=== PATIENT | female | born 1950 | race Caucasian/White ===

== ENCOUNTER 2020-12-06 15:37 | Inpatient (IN) | payer MEDICARE ==
[~2020-12-06] VITALS: Ht 170.2 cm; Wt 146.3 kg
[2020-12-06 18:28] LABS: BASOPHILS % (AUTO) 0.5 % (0-1); EOSINOPHILS % (AUTO) 0 % (0-6); HEMATOCRIT 45.1 % (35.0-45.0); HEMOGLOBIN 15.1 g/dl (12.0-16.0); LYMPHOCYTES # (AUTO) 0.9 X10'3 (1.1-4.8); LYMPHOCYTES % (AUTO) 15.1 % (21-51); MEAN CORPUSCULAR HEMOGLOBIN 26.8 PG (27.0-31.0); MEAN CORPUSCULAR HGB CONC 33.6 g/dL (33.0-36.5); MEAN CORPUSCULAR VOLUME 79.9 FL (78-98); MEAN PLATELET VOLUME 7.6 FL (7.4-10.4); MONOCYTES # (AUTO) 0.8 X10'3 (0-0.9); MONOCYTES % (AUTO) 14.5 % (2-12); NEUTROPHILS # (AUTO) 4.1 X10'3 (1.8-7.7); NEUTROPHILS % (AUTO) 69.9 % (42-75); PLATELET COUNT 240 X10'3 (140-440); RED BLOOD COUNT 5.64 X10'6 (4.20-5.60); RED CELL DISTRIBUTION WIDTH 14.8 % (11.5-14.5); WHITE BLOOD COUNT 5.8 X10'3 (4.5-11.0)
[2020-12-06 18:39] LABS: D-DIMER 1.37 MG/L FEU (0-0.50)
[2020-12-06] MEDS ORDERED: dexamethasone 4mg/ml inj IV ONE (19:00)
[2020-12-06 19:21] LABS: ALANINE AMINOTRANSFERASE 38 U/L (12-78); ALBUMIN/GLOBULIN RATIO 0.6 (1.1-1.5); BILIRUBIN,TOTAL 0.6 MG/DL (0.1-1.0); C-REACTIVE PROTEIN 4.32 MG/DL (0.0-0.5); CALCIUM 8.9 MG/DL (8.5-10.1); CHLORIDE 92 MMOL/L (99-107); GLUCOSE 109 MG/DL (70-104); SODIUM 129 MMOL/L (135-145); TOTAL PROTEIN 7.7 G/DL (6.4-8.2); eGFR 62 ML/MIN
[2020-12-06 19:23] LABS: LACTATE DEHYDROGENASE 311 U/L (81-234)
[2020-12-06 19:41] LABS: ANION GAP 12 (8-16); ASPARTATE AMINO TRANSFERASE 43 U/L (10-37); BLOOD UREA NITROGEN 20 MG/DL (7-18); BUN/CREATININE RATIO 22.2 (6.6-38.0); TOTAL CARBON DIOXIDE 24.8 MMOL/L (24-32)
[2020-12-06 19:52] LABS: ALKALINE PHOSPHATASE 76 IU/L (46-116)
[2020-12-06] MEDS ORDERED: REMDESIVIR INJ 200 MG in normal saline 100ml IV soln 60 ML IV ONE (19:55)
[2020-12-06] MEDS ORDERED: diphenhydrAMINE 25mg capsule PO PRN (20:55)
[2020-12-06] MEDS ORDERED: potassium Cl 20 mEq SR tablet PO PRN (20:55)
[2020-12-06] MEDS ORDERED: ondansetron/PF 4mg/2ml inj IV PRN (20:55)
[2020-12-06] MEDS ORDERED: HYDROcodone/acetaminophen 5mg/325mg tablet PO PRN (20:55)
[2020-12-06] MEDS ORDERED: potassium Cl 40MEQ/1/2NS 520ml 520 ML IV PRN ×2 (20:55)
[2020-12-06] MEDS ORDERED: bisacodyl 10mg suppository rectal RC PRN (20:55)
[2020-12-06] MEDS ORDERED: HYDROmorphone inj. 0.5 MG/0.5 ML DISP.SYRIN IV PRN (20:55)
[2020-12-06] MEDS ORDERED: morphine 2 MG/ML inj. syringe IV PRN ×2 (20:55)
[2020-12-06] MEDS ORDERED: magnesium hydroxide 30ml (MOM) UD suspension PO PRN (20:55)
[2020-12-06] MEDS ORDERED: ondansetron 4mg rapidly disintigrating tab PO PRN (20:55)
[2020-12-06] MEDS ORDERED: acetaminophen 325mg tablet PO PRN ×2 (20:55)
[2020-12-06] MEDS ORDERED: acetaminophen 650mg rectal suppository RC PRN (20:55)
[2020-12-06] MEDS ORDERED: diphenhydrAMINE 50 mg/ml inj IV PRN (20:55)
[2020-12-06] MEDS ORDERED: mag hydrox/Alum hydrox/simeth 30ml oral suspension PO PRN (20:55)
[2020-12-06] MEDS ORDERED: temazepam 15mg capsule PO PRN (21:00)
[2020-12-06] MEDS ORDERED: dextrose ORAL solution 15 GM/59 ML bottle PO PRN ×2 (21:05)
[2020-12-06] MEDS ORDERED: dextrose 50%-water 50ml dispensing syringe IV PRN ×2 (21:05)
[2020-12-06] MEDS ORDERED: MESSAGE TO PHARMACY PO ONE (21:05)
[2020-12-06] MEDS ORDERED: glucagon, human recombinant 1mg kit SUBCUT PRN (21:05)
--- NOTE | 2020-12-06 21:23 | NUR ---
VISHNU Rangel would like to be kept updated [phone]
[2020-12-06 21:42] LABS: PARTIAL THROMBOPLASTIN TIME 28 SECONDS (22-32)
[2020-12-06 21:46] LABS: CREATINE KINASE 261 U/L (26-192); LIPASE 150 U/L (73-393); MAGNESIUM 2.2 MG/DL (1.5-2.4); PHOSPHORUS 3.3 MG/DL (2.3-4.5)
[2020-12-06 21:48] LABS: HEMOGLOBIN A1C 7.4 % (4.5-6.2)
[2020-12-06] MEDS ORDERED: ALBU18HF2 PO (22:08)
[2020-12-06] MEDS ORDERED: LOSA50TA64 PO (22:08)
[2020-12-06] MEDS ORDERED: OXYB15TA19 PO (22:08)
[2020-12-06] MEDS ORDERED: METF-436 PO (22:08)
[2020-12-06] MEDS ORDERED: ATEN1TAB5 PO (22:08)
[2020-12-06] MEDS: normal saline 1000ml 1,000 ML IV SCH (22:13)
[2020-12-06 23:42] LABS: CLARITY,URINE CLOUDY (Clear); COLOR,URINE YELLOW (Yellow); PH,URINE 6.5 (4.8-8.0); UA COLLECTION TYPE CLN CATCH MIDSTREAM
[2020-12-06 23:43] LABS: KETONES,URINE NEGATIVE (Neg); PROTEIN,URINE 100 mg/dl (Neg)
[2020-12-06 23:44] LABS: GLUCOSE, URINE NEGATIVE (Neg); NITRITES, URINE POSITIVE (Neg); OCCULT BLOOD,URINE MODERATE (Neg); UROBILINOGEN,URINE 0.2 E.U/dL (0.2-1.0)
[2020-12-06 23:45] LABS: LEUKOCYTE ESTERASE ,URINE LARGE (Neg)
[2020-12-06] MEDS ORDERED: ALBUTEROL INHALER 1 PUFF/90 MCG INHALER IH PRN (23:45)
[2020-12-06 23:54] LABS: BACTERIA,URINE 4+ /HPF (Neg); MUCUS STRANDS NONE SEEN /LPF (Neg); RBC,URINE 0-2 /HPF (0-2); SQUAMOUS EPITHELIAL CELL,UR MODERATE /LPF (FEW); TRIPLE PHOSPHATE CRYST 1+ /HPF (NEGATIVE)
--- NOTE | 2020-12-07 06:47 | NUR ---
REPORT ATTEMPTED, PT BED PENDING UNTIL CURRENT PT TRANSFERED OUT AND ROOM CLEANED
[2020-12-07] MEDS: normal saline 1000ml 1,000 ML IV SCH ×2 (07:25→20:44)
[2020-12-07] MEDS ORDERED: pantoprazole 40mg Tablet.DR PO SCH (07:30)
--- NOTE | 2020-12-07 07:51 | NUR ---
CALLED ER FOR REPORT, NO REPLY
[2020-12-07] MEDS: K and/or MAG REPLACEMENT MC SCH ×2 (08:00→20:33)
--- NOTE | 2020-12-07 09:00 | NUR ---
Patient in room COVID 05. I have received report from keo, nonfarm animal caretaker and had the opportunity to ask questions and assume patient care.
[2020-12-07 09:05] LABS: BASOPHILS % (AUTO) 0.4 % (0-1); EOSINOPHILS % (AUTO) 0 % (0-6); HEMATOCRIT 45.5 % (35.0-45.0); LYMPHOCYTES # (AUTO) 0.6 X10'3 (1.1-4.8); LYMPHOCYTES % (AUTO) 17.6 % (21-51); MEAN CORPUSCULAR HEMOGLOBIN 26.7 PG (27.0-31.0); MEAN CORPUSCULAR HGB CONC 32.9 g/dL (33.0-36.5); MEAN PLATELET VOLUME 7.9 FL (7.4-10.4); MONOCYTES # (AUTO) 0.6 X10'3 (0-0.9); MONOCYTES % (AUTO) 16.3 % (2-12); NEUTROPHILS # (AUTO) 2.3 X10'3 (1.8-7.7); NEUTROPHILS % (AUTO) 65.7 % (42-75); PLATELET COUNT 236 X10'3 (140-440); RED BLOOD COUNT 5.61 X10'6 (4.20-5.60); RED CELL DISTRIBUTION WIDTH 14.7 % (11.5-14.5); WHITE BLOOD COUNT 3.6 X10'3 (4.5-11.0)
[2020-12-07 09:16] LABS: ALANINE AMINOTRANSFERASE 29 U/L (12-78); ALBUMIN 2.6 G/DL (3.4-5.0); ALBUMIN/GLOBULIN RATIO 0.6 (1.1-1.5); ALKALINE PHOSPHATASE 69 IU/L (46-116); ANION GAP 12 (8-16); ASPARTATE AMINO TRANSFERASE 38 U/L (10-37); BILIRUBIN,TOTAL 0.5 MG/DL (0.1-1.0); BLOOD UREA NITROGEN 17 MG/DL (7-18); BUN/CREATININE RATIO 25.8 (6.6-38.0); CALCIUM 8.7 MG/DL (8.5-10.1); CHLORIDE 98 MMOL/L (99-107); CHOL/HDL RATIO 3.5 (0.00-4.99); CHOLESTEROL 137 MG/DL (0-200); CREATININE 0.66 MG/DL (0.40-0.90); GLUCOSE 141 MG/DL (70-104); HDL CHOLESTEROL 39 MG/DL (35-60); LDL CHOLESTEROL 71 MG/DL (50-100); POTASSIUM 3.4 MMOL/L (3.5-5.1); SODIUM 133 MMOL/L (135-145); TOTAL CARBON DIOXIDE 23.5 MMOL/L (24-32); TOTAL PROTEIN 7.2 G/DL (6.4-8.2); TRIGLYCERIDES 102 MG/DL (20-135); eGFR 89 ML/MIN
[2020-12-07] MEDS: REMDESIVIR INJ 100 MG in normal saline 100ml IV soln 80 ML IV SCH (09:30)
[2020-12-07] MEDS: docusate sod 100mg capsule PO SCH ×2 (09:32→20:47)
[2020-12-07] MEDS: chlorthalidone 25mg tablet PO SCH (09:32)
[2020-12-07] MEDS: oxybutynin 5mg tablet PO SCH ×3 (09:32→20:47)
[2020-12-07] MEDS: pantoprazole 40mg Tablet.DR PO SCH (09:33)
[2020-12-07] MEDS: losartan 50mg tablet PO SCH (09:35)
[2020-12-07] MEDS: atenolol 50mg tablet PO SCH (09:36)
[2020-12-07 10:30] VITALS: BP 142/76
--- NOTE | 2020-12-07 10:30 | NUR ---
received pt into room 5A, oriented to surroundings,pt on 6l/n/csao2=98, pt denies pt denies pain, sob VSS
[2020-12-07] MEDS: CefTRIAXone/D5W-Rocephin 1gm 50 ML IV SCH (11:05)
[2020-12-07] MEDS: dexamethasone inj 6 MG in normal saline 50ml IV soln 50 ML IV SCH (11:05)
[2020-12-07] MEDS: azithromycin/NS 500mg/250ml 250 ML IV SCH (11:05)
[2020-12-07] MEDS: enoxaparin 80mg/0.8ml syringe SUBCUT SCH ×2 (11:06→20:47)
[2020-12-07 14:00] VITALS: BP 141/72
--- NOTE | 2020-12-07 18:37 | NUR ---
Problems reprioritized. Patient report given, questions answered & plan of care reviewed with [place] galicia.
[2020-12-07 20:00] VITALS: BP 132/3
[2020-12-07] MEDS: insulin glargine (Lantus) pen - multi-dose SQ SCH (21:00)
[2020-12-08] VITALS: BP 139/75
[2020-12-08] MEDS: normal saline 1000ml 1,000 ML IV SCH ×3 (02:58→23:32)
[2020-12-08 06:00] VITALS: BP 133/71
--- NOTE | 2020-12-08 06:38 | NUR ---
Problems reprioritized. Patient report given, questions answered & plan of care reviewed with CH[facility]. Addendum: 12/08/20 at 0639 by Benjie Hayward RN Amended: Links added.
[2020-12-08] MEDS: dexamethasone inj 6 MG in normal saline 50ml IV soln 50 ML IV SCH (07:57)
[2020-12-08] MEDS: potassium chloride 8mEq ER tablet PO SCH (08:00)
[2020-12-08] MEDS: pantoprazole 40mg Tablet.DR PO SCH (08:01)
[2020-12-08] MEDS: oxybutynin 5mg tablet PO SCH ×3 (08:01→21:43)
[2020-12-08] MEDS: losartan 50mg tablet PO SCH (08:02)
[2020-12-08] MEDS: chlorthalidone 25mg tablet PO SCH (08:03)
[2020-12-08] MEDS: docusate sod 100mg capsule PO SCH ×2 (08:03→21:43)
[2020-12-08] MEDS: atenolol 50mg tablet PO SCH (08:03)
[2020-12-08 08:05] LABS: BASOPHILS % (AUTO) 0.1 % (0-1); EOSINOPHILS % (AUTO) 0.2 % (0-6); HEMATOCRIT 40.5 % (35.0-45.0); HEMOGLOBIN 13.6 g/dl (12.0-16.0); LYMPHOCYTES % (AUTO) 18.6 % (21-51); MEAN CORPUSCULAR HEMOGLOBIN 26.6 PG (27.0-31.0); MEAN CORPUSCULAR HGB CONC 33.7 g/dL (33.0-36.5); MEAN CORPUSCULAR VOLUME 78.8 FL (78-98); MEAN PLATELET VOLUME 7.4 FL (7.4-10.4); MONOCYTES # (AUTO) 0.8 X10'3 (0-0.9); NEUTROPHILS # (AUTO) 3.6 X10'3 (1.8-7.7); NEUTROPHILS % (AUTO) 67.1 % (42-75); PLATELET COUNT 295 X10'3 (140-440); RED BLOOD COUNT 5.13 X10'6 (4.20-5.60); RED CELL DISTRIBUTION WIDTH 14.8 % (11.5-14.5); WHITE BLOOD COUNT 5.4 X10'3 (4.5-11.0)
[2020-12-08] MEDS: furosemide 20 MG/2 ML vial IV SCH (08:07)
[2020-12-08] MEDS: enoxaparin 80mg/0.8ml syringe SUBCUT SCH ×2 (08:09→21:42)
[2020-12-08 08:18] LABS: ALANINE AMINOTRANSFERASE 26 U/L (12-78); ALBUMIN 2.5 G/DL (3.4-5.0); ALBUMIN/GLOBULIN RATIO 0.6 (1.1-1.5); ALKALINE PHOSPHATASE 57 IU/L (46-116); ANION GAP 9 (8-16); ASPARTATE AMINO TRANSFERASE 25 U/L (10-37); BILIRUBIN,TOTAL 0.4 MG/DL (0.1-1.0); BLOOD UREA NITROGEN 17 MG/DL (7-18); BUN/CREATININE RATIO 25.8 (6.6-38.0); CALCIUM 8.3 MG/DL (8.5-10.1); CHLORIDE 101 MMOL/L (99-107); CREATININE 0.66 MG/DL (0.40-0.90); GLUCOSE 116 MG/DL (70-104); SODIUM 137 MMOL/L (135-145); TOTAL PROTEIN 6.5 G/DL (6.4-8.2); eGFR 89 ML/MIN
[2020-12-08] MEDS: potassium Cl 20 mEq SR tablet PO PRN ×3 (08:47→17:41)
[2020-12-08] MEDS: REMDESIVIR INJ 100 MG in normal saline 100ml IV soln 80 ML IV SCH (08:47)
[2020-12-08] MEDS: K and/or MAG REPLACEMENT MC SCH ×2 (08:53→20:00)
--- NOTE | 2020-12-08 09:34 | NUR ---
DM consult: Noted pt with T2DM, current A1c is 7.4%. Pt presented with c/o generalized weakness and flu-like symptoms and significant SOB and admit with acute respiratory failure secondary COVID-19 pneumonia. DM education deferred until pt more stable. Will continue to follow. Addendum: 12/08/20 at [address] Amended: Links added.
[2020-12-08] MEDS: CefTRIAXone/D5W-Rocephin 1gm 50 ML IV SCH (09:58)
[2020-12-08] MEDS: azithromycin/NS 500mg/250ml 250 ML IV SCH (10:33)
[2020-12-08 12:00] VITALS: BP 129/72
[2020-12-08 17:53] VITALS: BP 136/86
--- NOTE | 2020-12-08 19:02 | NUR ---
Patient in room COVID 05. I have received report from BILL Le and had the opportunity to ask questions and assume patient care.
--- NOTE | 2020-12-08 19:04 | NUR ---
REPORT GIVEN TO JENISE KHAN, PT STABLE AND APPROPRIATE AT THIS TIME.
[2020-12-08] MEDS: insulin glargine (Lantus) pen - multi-dose SQ SCH (21:00)
[2020-12-08 22:00] VITALS: BP 148/79
--- NOTE | 2020-12-08 23:36 | NUR ---
Patient satting 86-90 with 6L. Patient is now on a Salter at 10L satting 92-93.
[2020-12-09 02:00] VITALS: BP 147/79
--- NOTE | 2020-12-09 03:24 | NUR ---
Patient is now on 15 L with the Salter. She was satting in the 80's at 10L now satting at 95% at 15L
[2020-12-09 06:00] VITALS: BP 159/92
--- NOTE | 2020-12-09 06:27 | NUR ---
Problems reprioritized. Patient report given, questions answered & plan of care reviewed with BILL Rushing.
--- NOTE | 2020-12-09 06:42 | NUR ---
Patient in room COVID 05. I have received report from BILL Rhodes and had the opportunity to ask questions and assume patient care.
[2020-12-09] MEDS: K and/or MAG REPLACEMENT MC SCH ×2 (08:00→20:00)
[2020-12-09] MEDS: dexamethasone inj 6 MG in normal saline 50ml IV soln 50 ML IV SCH (09:22)
[2020-12-09] MEDS: oxybutynin 5mg tablet PO SCH ×3 (09:22→20:54)
[2020-12-09] MEDS: normal saline 1000ml 1,000 ML IV SCH ×2 (09:22→20:54)
[2020-12-09] MEDS: losartan 50mg tablet PO SCH (09:23)
[2020-12-09] MEDS: docusate sod 100mg capsule PO SCH ×2 (09:23→20:00)
[2020-12-09] MEDS: chlorthalidone 25mg tablet PO SCH (09:23)
[2020-12-09] MEDS: furosemide 20 MG/2 ML vial IV SCH (09:23)
[2020-12-09] MEDS: pantoprazole 40mg Tablet.DR PO SCH (09:23)
[2020-12-09] MEDS: atenolol 50mg tablet PO SCH (09:24)
[2020-12-09] MEDS: potassium chloride 8mEq ER tablet PO SCH (09:24)
[2020-12-09] MEDS: enoxaparin 80mg/0.8ml syringe SUBCUT SCH ×2 (09:24→20:54)
[2020-12-09 09:53] LABS: BASOPHILS % (AUTO) 0.2 % (0-1); EOSINOPHILS % (AUTO) 0.5 % (0-6); HEMATOCRIT 41.4 % (35.0-45.0); HEMOGLOBIN 13.8 g/dl (12.0-16.0); LYMPHOCYTES # (AUTO) 0.9 X10'3 (1.1-4.8); LYMPHOCYTES % (AUTO) 11.5 % (21-51); MEAN CORPUSCULAR HEMOGLOBIN 26.8 PG (27.0-31.0); MEAN CORPUSCULAR HGB CONC 33.3 g/dL (33.0-36.5); MEAN CORPUSCULAR VOLUME 80.4 FL (78-98); MEAN PLATELET VOLUME 7.8 FL (7.4-10.4); MONOCYTES % (AUTO) 12.1 % (2-12); NEUTROPHILS # (AUTO) 5.9 X10'3 (1.8-7.7); NEUTROPHILS % (AUTO) 75.7 % (42-75); PLATELET COUNT 328 X10'3 (140-440); RED BLOOD COUNT 5.15 X10'6 (4.20-5.60); RED CELL DISTRIBUTION WIDTH 14.7 % (11.5-14.5); WHITE BLOOD COUNT 7.8 X10'3 (4.5-11.0)
[2020-12-09 09:55] LABS: ALANINE AMINOTRANSFERASE 28 U/L (12-78); ALBUMIN 2.6 G/DL (3.4-5.0); ALBUMIN/GLOBULIN RATIO 0.6 (1.1-1.5); ALKALINE PHOSPHATASE 63 IU/L (46-116); ANION GAP 11 (8-16); ASPARTATE AMINO TRANSFERASE 23 U/L (10-37); BILIRUBIN,TOTAL 0.5 MG/DL (0.1-1.0); BLOOD UREA NITROGEN 17 MG/DL (7-18); CALCIUM 8.6 MG/DL (8.5-10.1); CHLORIDE 102 MMOL/L (99-107); CREATININE 0.81 MG/DL (0.40-0.90); GLUCOSE 152 MG/DL (70-104); POTASSIUM 3.8 MMOL/L (3.5-5.1); SODIUM 137 MMOL/L (135-145); TOTAL CARBON DIOXIDE 23.7 MMOL/L (24-32); TOTAL PROTEIN 6.8 G/DL (6.4-8.2); eGFR 70 ML/MIN
[2020-12-09 10:00] VITALS: BP 178/93
[2020-12-09] MEDS: REMDESIVIR INJ 100 MG in normal saline 100ml IV soln 80 ML IV SCH (10:03)
[2020-12-09] MEDS: CefTRIAXone/D5W-Rocephin 1gm 50 ML IV SCH (11:18)
[2020-12-09] MEDS: azithromycin/NS 500mg/250ml 250 ML IV SCH (11:56)
[2020-12-09 14:00] VITALS: BP 150/56
[2020-12-09] MEDS ORDERED: LACT1CAP26 PO (15:24)
[2020-12-09] MEDS ORDERED: AZIT500T9 PO (15:24)
[2020-12-09] MEDS ORDERED: METH4TAB81 PO (15:24)
[2020-12-09] MEDS ORDERED: PANT40TA54 PO (15:24)
--- NOTE | 2020-12-09 17:17 | NUR ---
Pt transported to room 4023B, via wheelchair, with all belongings.
--- NOTE | 2020-12-09 18:39 | NUR ---
Problems reprioritized. Patient report given, questions answered & plan of care reviewed with BILL Wiggins.
--- NOTE | 2020-12-09 18:39 | NUR ---
Patient in room ORTHO 4023. I have received report from Kristan KHAN and had the opportunity to ask questions and assume patient care.
[2020-12-09 20:00] VITALS: BP 152/60
[2020-12-09] MEDS: lactobacillus rhamnosus 10,000 MMU CELLS/CAPSULE PO SCH (20:54)
[2020-12-09] MEDS: insulin glargine (Lantus) pen - multi-dose SQ SCH (21:00)
[2020-12-09 22:00] VITALS: BP 146/78
[2020-12-10] MEDS: dexamethasone inj 6 MG in normal saline 50ml IV soln 50 ML IV SCH ×3 (00:02→19:03)
--- NOTE | 2020-12-10 00:23 | NUR ---
Problems reprioritized. Patient report given, questions answered & plan of care reviewed with Thuy KHAN.
--- NOTE | 2020-12-10 00:30 | NUR ---
Assumed care of pt at this time report from Rosalie KHAN.
[2020-12-10 02:00] VITALS: BP 138/87
[2020-12-10] MEDS: normal saline 1000ml 1,000 ML IV SCH ×2 (04:55→14:55)
--- NOTE | 2020-12-10 06:20 | NUR ---
Report to Yodit Godwin.
[2020-12-10 06:32] VITALS: BP 160/89
--- NOTE | 2020-12-10 06:33 | NUR ---
Patient in room ORTHO 4023. I have received report from Thuy KHAN and had the opportunity to ask questions and assume patient care.
[2020-12-10] MEDS: CefTRIAXone/D5W-Rocephin 1gm 50 ML IV SCH (07:35)
[2020-12-10] MEDS: REMDESIVIR INJ 100 MG in normal saline 100ml IV soln 80 ML IV SCH (07:35)
[2020-12-10] MEDS: pantoprazole 40mg Tablet.DR PO SCH (07:36)
[2020-12-10] MEDS: furosemide 20 MG/2 ML vial IV SCH (07:36)
[2020-12-10] MEDS: oxybutynin 5mg tablet PO SCH ×3 (07:36→22:18)
[2020-12-10] MEDS: chlorthalidone 25mg tablet PO SCH (07:36)
[2020-12-10] MEDS: potassium chloride 8mEq ER tablet PO SCH (07:36)
[2020-12-10] MEDS: lactobacillus rhamnosus 10,000 MMU CELLS/CAPSULE PO SCH ×2 (07:36→19:01)
[2020-12-10] MEDS: docusate sod 100mg capsule PO SCH ×2 (07:37→19:01)
[2020-12-10] MEDS: enoxaparin 80mg/0.8ml syringe SUBCUT SCH ×2 (07:37→19:01)
[2020-12-10] MEDS: atenolol 50mg tablet PO SCH (07:37)
[2020-12-10 07:58] LABS: BASOPHILS % (AUTO) 0.2 % (0-1); EOSINOPHILS % (AUTO) 0.1 % (0-6); HEMATOCRIT 40.4 % (35.0-45.0); HEMOGLOBIN 13.3 g/dl (12.0-16.0); LYMPHOCYTES # (AUTO) 0.7 X10'3 (1.1-4.8); MEAN CORPUSCULAR HEMOGLOBIN 26.7 PG (27.0-31.0); MEAN CORPUSCULAR HGB CONC 32.9 g/dL (33.0-36.5); MEAN CORPUSCULAR VOLUME 81.3 FL (78-98); MEAN PLATELET VOLUME 7.6 FL (7.4-10.4); MONOCYTES # (AUTO) 0.4 X10'3 (0-0.9); MONOCYTES % (AUTO) 10.2 % (2-12); NEUTROPHILS % (AUTO) 73.5 % (42-75); PLATELET COUNT 355 X10'3 (140-440); RED BLOOD COUNT 4.97 X10'6 (4.20-5.60); RED CELL DISTRIBUTION WIDTH 14.7 % (11.5-14.5); WHITE BLOOD COUNT 4.1 X10'3 (4.5-11.0)
[2020-12-10] MEDS: K and/or MAG REPLACEMENT MC SCH ×2 (08:00→20:00)
[2020-12-10 08:21] LABS: ALANINE AMINOTRANSFERASE 47 U/L (12-78); ALBUMIN 2.5 G/DL (3.4-5.0); ALBUMIN/GLOBULIN RATIO 0.6 (1.1-1.5); ALKALINE PHOSPHATASE 71 IU/L (46-116); ANION GAP 8 (8-16); ASPARTATE AMINO TRANSFERASE 39 U/L (10-37); BILIRUBIN,TOTAL 0.5 MG/DL (0.1-1.0); BLOOD UREA NITROGEN 13 MG/DL (7-18); BUN/CREATININE RATIO 21.3 (6.6-38.0); C-REACTIVE PROTEIN 2.44 MG/DL (0.0-0.5); CALCIUM 8.4 MG/DL (8.5-10.1); CHLORIDE 103 MMOL/L (99-107); CREATININE 0.61 MG/DL (0.40-0.90); GLUCOSE 154 MG/DL (70-104); SODIUM 137 MMOL/L (135-145); TOTAL CARBON DIOXIDE 25.8 MMOL/L (24-32); TOTAL PROTEIN 6.7 G/DL (6.4-8.2); eGFR > 90 ML/MIN
[2020-12-10 08:30] LABS: D-DIMER 0.66 MG/L FEU (0-0.50)
--- NOTE | 2020-12-10 09:48 | NUR ---
Patient is refusing insulin coverage although she has met protocol.
[2020-12-10 11:36] VITALS: BP 155/79
[2020-12-10] MEDS: losartan 50mg tablet PO SCH (11:46)
--- NOTE | 2020-12-10 13:25 | NUR ---
Initial: Pt presented with c/o generalized weakness and flu-like symptoms and significant SOB and admit with acute respiratory failure secondary COVID-19 pneumonia. Currently on a CHO controlled diet and eating fairly well with average 75% PO intake though not fully meeting estimated nutrient needs. Recommend Ensure High Protein BID to assist with meeting estimated nutrient needs. ONS to be sent pending physician approval in EMR. LBM 12/09, receiving routine bowel care. Will continue to follow and monitor need for further nutrition intervention. Recommendations: 1) Continue CHO controlled diet 2) Ensure High Protein BIDBD, pending physician approval in EMR 3) Routine bowel care 4) Weekly scaled weights 5) DM education once stable, A1c 7.4% Addendum: 12/10/20 at [address] Amended: Links added.
[2020-12-10] MEDS: insulin Lispro (HumaLOG) vial - multi-dose SQ SCH ×2 (13:34→18:56)
--- NOTE | 2020-12-10 14:33 | NUR ---
Supplied patient with an insentive spirometer
--- NOTE | 2020-12-10 14:35 | NUR ---
Patient is very resistive to taking insulin, educated about why insulin is needed and the fact that steroids increase blood sugars. Patient does not seem to fully understand this. Explained in length how we do our hyperglycemia protocol in the hospital. She is very reluctant to take any insulin and states that she will only cause she "has to". Educated patient on the right to refuse, she agrees to take the insulin at this time.
--- NOTE | 2020-12-10 15:47 | NUR ---
PAGER ID: [phone] MESSAGE: [id number] bp is 172/86 I could not give her atenolol this morning because she is bradycardic. Got cozzar, Lasix and chlorthalidone this morning. Yodit [id number]
[2020-12-10 15:50] VITALS: BP 172/86
[2020-12-10] MEDS: amLODIPine 5mg tablet PO SCH (16:12)
[2020-12-10] MEDS ORDERED: lactose-reduced food (Ensure High Protein) 237ml bottle PO SCH (17:30)
--- NOTE | 2020-12-10 18:30 | NUR ---
Problems reprioritized. Patient report given, questions answered & plan of care reviewed with Mellissa KHAN and Whitley KHAN.
[2020-12-10 18:33] VITALS: BP 158/83
[2020-12-10 22:00] VITALS: BP 158/83
[2020-12-10] MEDS: insulin glargine (Lantus) pen - multi-dose SQ SCH (22:22)
--- NOTE | 2020-12-10 23:00 | NUR ---
gave patient medication education sheets printed from computer for patient, educated multiple times on medications and procedures.
[2020-12-11] MEDS: normal saline 1000ml 1,000 ML IV SCH (00:55)
[2020-12-11 01:27] VITALS: BP 155/74
--- NOTE | 2020-12-11 06:13 | NUR ---
Problems reprioritized. Patient report given, questions answered & plan of care reviewed with BILL Monsivais.
--- NOTE | 2020-12-11 06:19 | NUR ---
Patient in room ORTHO 4023. I have received report from Whitley KHAN and Mellissa KHAN and had the opportunity to ask questions and assume patient care.
[2020-12-11 06:22] VITALS: BP 154/80
[2020-12-11] MEDS: dexamethasone inj 6 MG in normal saline 50ml IV soln 50 ML IV SCH ×2 (07:02→20:21)
[2020-12-11] MEDS: enoxaparin 80mg/0.8ml syringe SUBCUT SCH ×2 (07:03→20:29)
[2020-12-11] MEDS: potassium chloride 8mEq ER tablet PO SCH (07:03)
[2020-12-11] MEDS: chlorthalidone 25mg tablet PO SCH (07:03)
[2020-12-11] MEDS: CefTRIAXone/D5W-Rocephin 1gm 50 ML IV SCH (07:03)
[2020-12-11] MEDS: lactobacillus rhamnosus 10,000 MMU CELLS/CAPSULE PO SCH ×2 (07:03→20:29)
[2020-12-11] MEDS: oxybutynin 5mg tablet PO SCH ×3 (07:03→20:29)
[2020-12-11] MEDS: pantoprazole 40mg Tablet.DR PO SCH (07:03)
[2020-12-11] MEDS: losartan 50mg tablet PO SCH (07:04)
[2020-12-11] MEDS: docusate sod 100mg capsule PO SCH ×2 (07:04→20:00)
[2020-12-11] MEDS: furosemide 20 MG/2 ML vial IV SCH (07:04)
[2020-12-11] MEDS: atenolol 50mg tablet PO SCH (07:10)
[2020-12-11] MEDS: K and/or MAG REPLACEMENT MC SCH ×2 (08:00→20:00)
[2020-12-11 08:29] LABS: BASOPHILS # (AUTO) 0.1 X10'3 (0-0.2); BASOPHILS % (AUTO) 1.2 % (0-1); EOSINOPHILS % (AUTO) 0.4 % (0-6); HEMATOCRIT 43.8 % (35.0-45.0); HEMOGLOBIN 14.7 g/dl (12.0-16.0); LYMPHOCYTES # (AUTO) 0.9 X10'3 (1.1-4.8); LYMPHOCYTES % (AUTO) 16.2 % (21-51); MEAN CORPUSCULAR HEMOGLOBIN 26.8 PG (27.0-31.0); MEAN CORPUSCULAR HGB CONC 33.4 g/dL (33.0-36.5); MEAN CORPUSCULAR VOLUME 80.2 FL (78-98); MONOCYTES # (AUTO) 0.7 X10'3 (0-0.9); MONOCYTES % (AUTO) 12.5 % (2-12); NEUTROPHILS # (AUTO) 4.1 X10'3 (1.8-7.7); NEUTROPHILS % (AUTO) 69.7 % (42-75); PLATELET COUNT 373 X10'3 (140-440); RED BLOOD COUNT 5.47 X10'6 (4.20-5.60); RED CELL DISTRIBUTION WIDTH 14.9 % (11.5-14.5); WHITE BLOOD COUNT 5.8 X10'3 (4.5-11.0)
[2020-12-11 08:49] LABS: ALANINE AMINOTRANSFERASE 51 U/L (12-78); ALBUMIN 2.8 G/DL (3.4-5.0); ALBUMIN/GLOBULIN RATIO 0.6 (1.1-1.5); ALKALINE PHOSPHATASE 72 IU/L (46-116); ANION GAP 10 (8-16); ASPARTATE AMINO TRANSFERASE 26 U/L (10-37); BILIRUBIN,TOTAL 0.5 MG/DL (0.1-1.0); BLOOD UREA NITROGEN 16 MG/DL (7-18); C-REACTIVE PROTEIN 1.34 MG/DL (0.0-0.5); CHLORIDE 97 MMOL/L (99-107); CREATININE 0.64 MG/DL (0.40-0.90); GLUCOSE 150 MG/DL (70-104); POTASSIUM 3.5 MMOL/L (3.5-5.1); SODIUM 136 MMOL/L (135-145); TOTAL PROTEIN 7.5 G/DL (6.4-8.2); eGFR > 90 ML/MIN
[2020-12-11] MEDS: insulin Lispro (HumaLOG) vial - multi-dose SQ SCH ×3 (09:51→19:06)
[2020-12-11] MEDS ORDERED: azithromycin/NS 500mg/250ml 250 ML IV SCH (10:25)
[2020-12-11] MEDS ORDERED: REMDESIVIR INJ 200 MG in normal saline 100ml IV soln 60 ML IV ONE (10:25)
[2020-12-11 12:05] VITALS: BP 144/66
[2020-12-11 14:35] VITALS: BP 164/79
[2020-12-11] MEDS: amLODIPine 5mg tablet PO SCH (15:11)
[2020-12-11 18:00] VITALS: BP 130/64
--- NOTE | 2020-12-11 18:36 | NUR ---
Problems reprioritized. Patient report given, questions answered & plan of care reviewed with Bhakti KHAN.
--- NOTE | 2020-12-11 18:42 | NUR ---
Patient in room ORTHO 4023. I have received report from BILL Monsivais and had the opportunity to ask questions and assume patient care.
[2020-12-11] MEDS: insulin glargine (Lantus) pen - multi-dose SQ SCH (21:58)
[2020-12-11 22:00] VITALS: BP 152/78
[2020-12-12 02:00] VITALS: BP 165/90
--- NOTE | 2020-12-12 06:31 | NUR ---
Problems reprioritized. Patient report given, questions answered & plan of care reviewed with BILL Le.
[2020-12-12 06:59] VITALS: BP 158/86
[2020-12-12] MEDS: docusate sod 100mg capsule PO SCH (08:00)
[2020-12-12] MEDS ORDERED: REMDESIVIR INJ 100 MG in normal saline 100ml IV soln 80 ML IV SCH (08:00)
[2020-12-12] MEDS: K and/or MAG REPLACEMENT MC SCH (08:00)
[2020-12-12] MEDS: insulin Lispro (HumaLOG) vial - multi-dose SQ SCH (09:24)
[2020-12-12] MEDS: lactobacillus rhamnosus 10,000 MMU CELLS/CAPSULE PO SCH (09:29)
[2020-12-12] MEDS: oxybutynin 5mg tablet PO SCH (09:29)
[2020-12-12] MEDS: atenolol 50mg tablet PO SCH (09:30)
[2020-12-12] MEDS: chlorthalidone 25mg tablet PO SCH (09:30)
[2020-12-12] MEDS: losartan 50mg tablet PO SCH (09:31)
[2020-12-12] MEDS: pantoprazole 40mg Tablet.DR PO SCH (09:32)
[2020-12-12] MEDS: amLODIPine 5mg tablet PO SCH (09:32)
[2020-12-12] MEDS: potassium chloride 8mEq ER tablet PO SCH (09:33)
[2020-12-12] MEDS: enoxaparin 80mg/0.8ml syringe SUBCUT SCH (09:34)
[2020-12-12] MEDS: furosemide 20 MG/2 ML vial IV SCH (09:37)
[2020-12-12] MEDS: dexamethasone inj 6 MG in normal saline 50ml IV soln 50 ML IV SCH (09:45)
[2020-12-12 10:00] VITALS: BP 113/74
[2020-12-12 10:17] LABS: D-DIMER 0.68 MG/L FEU (0-0.50)
[2020-12-12] MEDS: CefTRIAXone/D5W-Rocephin 1gm 50 ML IV SCH (10:29)
--- NOTE | 2020-12-12 10:41 | NUR ---
O2 Sat at rest on room air:__87_% If below 89%: Recovery O2 Sat at rest on 4_LPM:93 %:96% via_Nasal Cannnula___(mask/nasal cannula, etc..) No further documentation is necessary. If O2 Sat did not drop below 89% on room air,ambulate patient on room air. O2 Sat while ambulating on room air:___% Recovery O2 Sat while ambulating on ___LPM:___% No further documentation is necessary. If patient does not drop below 89% while ambulating, he/she does not qualify for home O2.
[2020-12-12 14:00] VITALS: BP 136/97
--- NOTE | 2020-12-12 14:36 | NUR ---
DM Consult: Pt A1C 7.4 currently w/ CONSTANTINE CORDERO. DM ed deferred at this time until more appropriate. Addendum: 12/12/20 at [address] Amended: Links added.
--- NOTE | 2020-12-12 19:33 | NUR ---
Patient discharged with family to home via private vehicle. Pt has home 02 and transport 02 and is aware of how to use both. IV taken out, heart monitor dc'd. All belongings taken from room. Pt wanting to go home. I talked to luz maria Turner thoroughly earlier about community resources for the future for patient and that we will provide patient with home health and home phys therapy to help alleviate her concerns about patient going home. Malaika from PT evaled patient this afternoon and patient did well walking to the door with a fww. patient says she will have friends staying with her when she gets home and is comfortable going home and feels close to baseline. Pt was frustrated that family is calling too much and thinks she cannot care for herself well and would like them to not be so involved in decisions for discharge. Pt appears appropriate for dc at this time.
--- NOTE | 2020-12-14 08:51 | NUR ---
calling in patients medications because they were not called in to [facility] on [address].
== END 2020-12-12 19:18 | disposition home or self-care (01) | DRG 177 ==
LOC: EDBD 15:37 → ER 15:37 → ED HOLD 20:54 → COVID IP 12-07 10:11 → ORTHO 4S 12-09 17:45
PROVIDERS: ADMIT Family Medicine; ATTEND Internal Medicine
PROC: XW033E5 Introduction of Remdesivir Anti-infective into Peripheral Vein, Percutaneous Approach, New Technology Group 5 (ICD-10-PCS; principal; 2020-12-06)
PROC: 5A0945A Assistance with Respiratory Ventilation, 24-96 Consecutive Hours, High Flow/Velocity Cannula (ICD-10-PCS; 2020-12-09)
DX: U07.1 COVID-19 (principal); J96.01 Acute respiratory failure with hypoxia; J12.82 Pneumonia due to coronavirus disease 2019; N17.9 Acute kidney failure, unspecified; Z68.43 Body mass index [BMI] 50.0-59.9, adult; E87.6 Hypokalemia; E11.9 Type 2 diabetes mellitus without complications; B96.20 Unspecified Escherichia coli [E. coli] as the cause of diseases classified elsewhere; R60.0 Localized edema; E87.70 Fluid overload, unspecified; R82.71 Bacteriuria; E66.01 Morbid (severe) obesity due to excess calories; E78.5 Hyperlipidemia, unspecified; I10 Essential (primary) hypertension; G47.33 Obstructive sleep apnea (adult) (pediatric); E78.00 Pure hypercholesterolemia, unspecified; Z79.899 Other long term (current) drug therapy
CPT/HCPCS: 36415; 71045; 80053; 80061; 81001; 82550; 82948; 83036; 83615; 83690; 83735; 83880; 84100; 84132; 84443; 85025; 85379; 85610; 85651; 85730; 86140; 87077; 87081; 87088; 87186; 87635; 93005; 94760; 96374; 97161; 97530; 99285; C9803; G0378; J0456; J0696; J1100; J1650; J1815; J1940; J7030